=== PATIENT | female | born 1980 | race Two or more races ===

== ENCOUNTER 2024-08-05 11:22 | Inpatient (IN) | payer OTHER, MEDICAID, MEDICARE, SELFPAY ==
[2024-08-05] VITALS (32 sets, daily range): BP systolic 73–116; BP diastolic 46–77; PULSE 74–110; RESP 13–94; TEMP 37–37.7; O2SAT 86–97; BMI 32.9; BMI 34.8
--- NOTE | 2024-08-05 11:51 | XR_ITS ---
Examination: CT brain head without contrast. 2-D sagittal coronal reconstructions Date and time of exam:August 05, 2024 1222 hours INDICATIONS: Patient fell today with injury to the head, head pain CTDI: vol (mGy):48.5 DLP: (mGycm):885 Technique: Multiple CT axial sections of the brain have been obtained, 5 mm slice thickness. Contrast has not been administered. 2-D sagittal, coronal reconstructions have been obtained Low dose protocols were performed. One or more of the following dose reduction techniques were used; automated exposure control, adjustment of the mA and/or KV according to patient size, use of iterative reconstruction technique. Findings: No significant ventricular enlargement. Large areas of calcification in the basal ganglia Intra-axial or extra-axial hemorrhage density is not seen. No mass effect or midline shift Basal cisterns are not remarkable. Fourth ventricle is midline. Cranial vault intact. Impression: Negative for acute hemorrhage, mass effect or midline shift
--- NOTE | 2024-08-05 11:52 | XR_ITS ---
Examination: AP chest single view TECHNIQUE: AP portable upright chest single view Exam date and time: August 05, 1999 2512 noon INDICATIONS: Sepsis protocol. FINDINGS: Bilateral perihilar right basilar pneumonia Normal heart size Reduced inspiratory effort IMPRESSION: Bilateral perihilar right basilar pneumonia
--- NOTE | 2024-08-05 11:54 | PD.EDSYNC ---
ED Syncope RME/HPI General Chief Complaint: Syncope / Near Syncope Stated Complaint: SYNCOPE EPISODE Time Seen by Provider: 08/05/24 11:51 Arrival date/time: 08/05/24 11:22 RME / HPI RME / HPI narrative: 43-year-old female patient with significant history of mental retardation, was brought in by EMS from home regarding syncope. Patient had a syncope few minutes prior to ER visit, and landed on the floor. Since then patient has been noticed to have confusion. When the EMS arrived patient was noted to be hypotensive, blood pressure on the low 70s. On my initial evaluation patient only had a headache. Denies any cough denies any fever denies any abdominal pain. In the triage patient's initial blood pressure was noted to be 83/53 heart rate of 74. I spoke with patient's sister who told me that yesterday he has been having a lot of loose stools, nonbloody. None today. Patient was eating breakfast before it happened. Was also noted to be having worsening cough for the last few days. Sepsis alert was called initially. Related Data Allergies Allergy/AdvReac Type Severity Reaction Status Date / Time ampicillin Allergy Severe Rash Verified 10/13/10 15:13 clindamycin Allergy Unknown Rash Verified 10/13/10 15:13 Review of Systems Review of Systems Narrative Review of Systems: Review of system reviewed and within normal limits except mentioned in HPI ED Exam Narrative Physical exam: VITAL SIGNS: Reviewed. GENERAL APPEARANCE: Alert and oriented x 2, follows simple commands, no acute distress, GCS 14 HEAD AND FACE: Non-traumatic. ENT: PERRL, pink conjunctivitis, eyelid no trauma, Mucous membrane moist. NECK: Supple, nontender, no nuchal rigidity. CHEST: No tenderness, no crepitus, no paradoxical movement, no retractions. LUNGS: Clear, well ventilated, symmetric, no rales, no wheezing, no ronchi, no stridor, good breath sounds bilaterally. HEART: Regular rate, regular rhythm, no murmur, no gallops. ABDOMEN: Soft, positive bowel sounds, nondistended, no guarding, nontender, no rebound, no masses, RECTAL: Deferred. GENITAL: Deferred. NEUROLOGICAL: Gross motor function intact sensory function intact, Appropriate for age. MUSCULOSKELETAL: low back nontender, full range of motion. EXTREMITIES: Nontender, full range of motion. SKIN: Color pink, dry, no rash, no lacerations, no abrasions, no contusions. LYMPHATICS: Deferred. Course Quality Measures none Orders Category Date Time Status Bedside COVID-19 Antigen Test NOW Care 08/05/24 11:56 Active Bedside Influenza A&B Antigen Test NOW Care 08/05/24 11:56 Active COVID-19 Screening Questionnaire NOW Care 08/05/24 16:15 Ordered Buffet Attendant STAT Care 08/05/24 11:51 Active Continuous Pulse Oximetry STAT Care 08/05/24 11:51 Completed Decision to Admit X1 Care 08/05/24 16:15 Ordered EKG (ED ONLY) *Do not use* NOW Care 08/05/24 11:51 Completed In and Out Catheter X1PRN Care 08/05/24 11:51 Completed Insert IV NOW Care 08/05/24 11:51 Active NPO STAT Care 08/05/24 11:51 Active Strict Intake and Output Routine Care 08/05/24 11:[address] head/brain wo con Stat Exams 08/05/24 11:51 Completed EKG (ED Only) Stat Exams 08/05/24 11:51 Ordered XR chest 1V SEPSIS PROTOCOL Stat Exams 08/05/24 11:52 Completed B-Type Natriuretic Peptide Stat Lab 08/05/24 12:00 Completed Blood Culture (Lab) Stat Lab 08/05/24 12:00 Received CBC Stat Lab 08/05/24 12:00 Completed Comprehensive Metabolic Panel Stat Lab 08/05/24 12:00 Completed LDH (Lactate Dehydrogenase) Stat Lab 08/05/24 12:00 Completed Lactate (Lactic Acid) Stat Lab 08/05/24 12:00 Completed Lipase Stat Lab 08/05/24 12:00 Completed Magnesium Stat Lab 08/05/24 12:00 Completed Partial Thromboplastin Time Stat Lab 08/05/24 12:00 Completed Phosphorous Stat Lab 08/05/24 12:00 Completed Procalcitonin Stat Lab 08/05/24 12:00 Completed Prothrombin Time with INR Stat Lab 08/05/24 12:00 Completed Troponin I Stat Lab 08/05/24 12:00 Completed Urinalysis Stat Lab 08/05/24 14:55 Completed Urine Culture Stat Lab 08/05/24 12:41 Received Acetaminophen Tab [Tylenol ES Tab] Med 08/05/24 15:54 Discontinued 1,000 mg PO X1 ONE Azithromycin Inj [Zithromax Inj] 500 mg Med 08/05/24 12:38 Discontinued Sodium Chloride 0.9% 250 ml [Ns] 250 ml IV X1 KCL 10% Liq UDC 15 ML Med 08/05/24 15:04 Discontinued 40 meq PO X1 ONE Morphine Inj Med 08/05/24 15:54 Discontinued 4 mg IVP X1 ONE Ondansetron Inj [Zofran Inj] Med 08/05/24 15:54 Discontinued 4 mg IV X1 ONE Potassium Chloride [K-Dur] Med 08/05/24 14:32 Discontinued 40 meq PO X1 ONE Ringers Lactated 1000 ml [Lactated Ringers] 1,000 ml Med 08/05/24 16:09 Active IV 999 mls/hr Sodium Chloride 0.9% 1000 ml [Ns] 2,449 ml Med 08/05/24 11:52 Discontinued IV 2,449 mls/hr cefTRIAXone/D5w 1gm IV premix [Rocephin/D5w 1gm IV Med 08/05/24 12:35 Discontinued premix] 50 ml IV X1 Oxygen Delivery NOW RT 08/05/24 11:51 Active Vital Signs Vital signs: Vital Signs Temperature 99.1 F 08/05/24 11:24 Pulse Rate 74 08/05/24 11:24 Respiratory Rate 20 08/05/24 11:24 Blood Pressure 91/61 08/05/24 11:24 Pulse Oximetry (%) 93 L 08/05/24 11:24 Oxygen Delivery Method Room Air 08/05/24 11:24 Syncope MDM Narrative MDM Narrative:: 43-year-old female patient with significant history of mental retardation, was brought in by EMS from home regarding syncope. Patient had a syncope few minutes prior to ER visit, and landed on the floor. Since then patient has been noticed to have confusion. When the EMS arrived patient was noted to be hypotensive, blood pressure on the low 70s. On my initial evaluation patient only had a headache. Denies any cough denies any fever denies any abdominal pain. In the triage patient's initial blood pressure was noted to be 83/53 heart rate of 74. I spoke with patient's sister who told me that yesterday he has been having a lot of loose stools, nonbloody. None today. Patient was eating breakfast before it happened. Was also noted to be having worsening cough for the last few days. Sepsis alert was called initially. Patient initially received 30 mL/kg IV bolus, total of 2.4 L, workup is significant for pneumonia. Patient received IV ceftriaxone and IV Zithromax. After all the medication and fluid given repeat the blood pressure went up a little bit but still on the mid 80s systolic. Patient plan of care discussed with the patient and family who agreed to be admitted for further management. Additional 1 L of IV LR was given. Spoke with hospitalist who will admit the patient. Patient data External records reviewed:: None Clinical information provided by:: none Social determinants that could affect healthcare access:: none Patient has the following chronic illnesses:: None How is presenting disease/condition affected by chronic disease/condition?: no chronic disease Evaluation data The following diagnostics were reviewed and interpreted by me:: lab results, radiology exam(s) and EKG tracing(s) Lab and/or radiology exams considered but not ordered:: None Interpretation Summary: CT scan of the head came back unremarkable. Chest x-ray showed bilateral pneumonia. Laboratory workup all came back unremarkable. EKG as interpreted by me showed sinus rhythm, ventricular rate of 71 bpm, no ST segment elevation depression noted. Medications / Prescriptions Medications or Prescriptions considered but not ordered:: None Medication administrations:: Medication Administration History Lactated Ringer's (Lactated Ringers) 1,000 mls @ 999 mls/hr IV .Q1H1M ONE Stop: 08/05/24 17:09 Last Admin: 08/05/24 16:11 Dose: 999 mls/hr Documented By: JOIE Discontinued Medications Acetaminophen (Acetaminophen 500 Mg Tablet) 1,000 mg PO X1 ONE Stop: 08/05/24 15:55 Last Admin: 08/05/24 16:10 Dose: Not Given Documented By: JOIE Non-Admin Reason: Cancelled by Provider Sodium Chloride (Ns) 2,449 mls @ 2,449 mls/hr 30 ml/kg infuse over 60 min (2449 ml) IV .Q1H ONE; Protocol Stop: 08/05/24 12:51 Last Infusion: 08/05/24 13:18 Dose: Infused Documented By: Admin: 08/05/24 12:04 Dose: 2,449 mls/hr Documented By: JOIE Ceftriaxone Sodium/Dextrose (Rocephin/D5w 1gm Iv Premix) 50 mls @ 100 mls/hr IV X1 ONE Stop: 08/05/24 13:04 Last Infusion: 08/05/24 13:15 Dose: Infused Documented By: Admin: 08/05/24 12:42 Dose: 100 mls/hr Documented By: JOIE Azithromycin 500 mg/ Sodium (Chloride) 250 mls @ 250 mls/hr IV X1 ONE Stop: 08/05/24 13:37 Last Infusion: 08/05/24 14:27 Dose: Infused Documented By: Admin: 08/05/24 13:26 Dose: 250 mls/hr Documented By: REE Morphine Sulfate (Morphine Sulf Inj 10 Mg/Ml Vial) 4 mg IVP X1 ONE Stop: 08/05/24 15:55 Last Admin: 08/05/24 16:10 Dose: Not Given Documented By: JOIE Non-Admin Reason: Cancelled by Provider Ondansetron HCl (Ondansetron Inj 2 Mg/Ml Inj 2 Ml) 4 mg IV X1 ONE; Protocol Stop: 08/05/24 15:55 Last Admin: 08/05/24 16:10 Dose: Not Given Documented By: JOIE Non-Admin Reason: Cancelled by Provider Potassium Chloride (Potassium Chloride 20 Meq Tabcr) 40 meq PO X1 ONE Stop: 08/05/24 14:33 Last Admin: 08/05/24 15:05 Dose: Not Given Documented By: JOIE Non-Admin Reason: Discontinued Potassium Chloride (Potassium Chloride 10% 20 Meq/15 Ml Udc) 40 meq PO X1 ONE Stop: 08/05/24 15:05 Last Admin: 08/05/24 15:10 Dose: 40 meq Documented By: JOIE Tylenol, ceftriaxone Zithromax potassium replacement and IV fluids for hydration Consultations Consultation(s) initiated? (list below): No Diagnosis Syncope Differential Diagnosis: syncope due to orthostatic hypotension, vasovagal syncope and other (Sepsis, pneumonia) Most likely diagnosis given after review of the tests above:: Sepsis, hypotension, pneumonia Admission Indicated Admission indicated?: indicated Explain why admission is indicated or not indicated:: Patient is to be admitted for further management. Admission Request Was there a request for admission?: Yes Admission Attestation Admission request attestation: Discussed case with [Dr Hernandez] from Hospitalist service regarding admission. Discussed patients ED course, exam findings, labs, and radiology results. The Hospitalist [agrees] to accept the patient for admission. Disposition Plan Disposition Plan: Admit Discharge Plan Plan Patient Disposition: Admit Acute Care w/in Hospital Prescriptions/Referrals Referrals: Janeth Chisholm PA-C [Primary Care Provider] - In 1 week Problem List Clinical Impression: Sepsis, Acute hypotension, Pneumonia Patient/Caregiver Discharge Instructions Print Language: Turkish Stand Alone Forms: [employer] Award Info., Patient Portal Info Letter
[2024-08-05] MEDS: SODIUM CHLORIDE 0.9% 2449 ML IV (12:04)
[2024-08-05 12:12] LABS: Lactate (Lactic Acid) 1.3 mMol/L (0.4-2.0)
[2024-08-05 12:14] LABS: Basophils % (Auto) 1 % (0-2.5); Eosinophils % (Auto) 0 % (0-10); Hemoglobin 13.2 g/dL (12.0-16.0); Immature Granulocytes % (Auto) 1 % (0-0); Immature Granulocytes Auto 0.03 Thou/mm3 (0.00-0.00); Lymphocytes # (Auto) 1.1 Thou/mm3 (1.0-4.8); Lymphocytes % (Auto) 39 % (10-50); Mean Corpuscular HGB Conc 34.7 g/dl (31.0-37.0); Mean Corpuscular Hemoglobin 33.7 pg (25.0-35.0); Mean Corpuscular Volume 97 fL (80-100); Monocytes # (Auto) 0.3 Thou/mm3 (0.0-0.8); Monocytes % (Auto) 9 % (0-12); Neutrophils # (Auto) 1.4 Thou/mm3 (1.8-7.7); Neutrophils % (Auto) 50 % (37-80); Nucleated Red Blood Cell % 0 /100 WBC (0); Platelet Count 131 Thou/mm3 (140-440); RDW Standard Deviation 51.7 fL (36.4-46.3); Red Blood Count 3.92 Miln/mm3 (4.00-5.20)
[2024-08-05 12:29] LABS: B-Type Natriuretic Peptide < 20 pg/mL (0-100)
[2024-08-05 12:34] LABS: White Blood Count 2.7 Thou/mm3 (3.6-11.0)
[2024-08-05 12:41] LABS: Alanine Aminotransferase 34 U/L (10-49); Albumin, Serum 3.8 gm/dL (3.5-5.0); Albumin/Globulin Ratio 1.2 (1.2-2.2); Alkaline Phosphatase 72 U/L (46-116); Anion Gap 8 (7-16); Aspartate Amino Transferase 54 U/L (0-34); BUN/Creatinine Ratio 15 Ratio (12-20); Bilirubin,Total 0.4 mg/dL (0.3-1.2); Blood Urea Nitrogen 17 mg/dL (9-23); Calcium (Corrected) 8.2 mg/dL (8.5-10.1); Carbon Dioxide 28.1 mMol/L (20.0-31.0); Chloride 100 mMol/L (98-107); Creatinine (Component) 1.1 mg/dL (0.6-1.3); Estimated Creatinine Clearance 63.9 mL/min (>60); Globulin 3.2 gm/dL (2.3-3.5); Glucose 103 mg/dL (74-106); LDH (Lactate Dehydrogenase) 340 U/L (120-246); Lipase 32 U/L (12-53); Magnesium 1.7 mg/dL (1.6-2.6); Osmolality,Calculated 273 (275-295); Procalcitonin 0.13 ng/ml (0.0-0.49); Sodium 136 mMol/L (136-145); Troponin I < 0.020 ng/mL (0.0-0.045); eGFR > 60 See Note
[2024-08-05 12:42] LABS: INR 1.1 (0.9-1.3); Partial Thromboplastin Time 31.9 Seconds (22.0-36.0); Prothrombin Time 11.5 Seconds (9.0-12.2)
[2024-08-05] MEDS: cefTRIAXone/D5w 1gm IV premix 50 ML IV (12:42)
[2024-08-05 12:56] LABS: Collection Type, Urine Clean Catch
[2024-08-05] MEDS: AZITHROMYCIN INJ 500 MG in SODIUM CHLORIDE 0.9% 250 ML 250 ML 250 MG IV (13:26)
[2024-08-05 15:09] LABS: Bacteria,Urine Rare; Bilirubin,Urine Negative (Negative); Blood,Urine Negative (Negative); Clarity,Urine Turbid (Clear/Hazy); Color,Urine Lt-Yellow (Lt Yel-Yel); Glucose, Urine Negative (Negative); Ketones,Urine Negative (Negative); Leukocyte Esterase,Urine Negative (Negative); Nitrite,Urine Negative (Negative); PH,Urine 6.5 (5.0-7.0); Protein,Urine Negative (Neg - Trace); RBC,Urine 1 /hpf (0-3); Specific Gravity,Urine 1.007 (1.001-1.035); Squamous Epithelial Cell,Urine 9 /hpf (0-5); Urobilinogen,Urine Negative mg/dL (0.0-1.0); WBC,Urine 1 /hpf (0-5)
[2024-08-05] MEDS: POTASSIUM CHLORIDE 10% 20 MEQ/15 ML UDC 40 MEQ PO (15:10)
[2024-08-05] MEDS: RINGERS LACTATED 1000 ML 1,000 ML 999 ML IV (16:11)
--- NOTE | 2024-08-05 17:04 | XR_ITS ---
Examination:Right hip AP, lateral, AP pelvis 3 views Technique: Hip AP lateral, AP pelvis, 3 views Exam date and time:August 05, 20242127 hrs. Indications: Patient fell today with injury to the hip, right hip pain Findings: No acute right hip fracture or dislocation Left hip bones of the pelvis intact Impression: No acute hip or pelvic fracture If pain persists, recommend follow-up AP pelvis in 1-2 days.
--- NOTE | 2024-08-05 17:04 | XR_ITS ---
Examination: Humerus 2 views right Technique: Humerus, AP lateral 2 views Date and time of exam: 1 0128 hrs. Indications: Patient fell today with injury to the right arm, right arm pain Findings: No shoulder fracture or dislocation Shaft of the humerus intact Impression: No acute fracture
--- NOTE | 2024-08-05 17:04 | XR_ITS ---
Examination: Knee, right , 3 views Technique: Knee AP, lateral, oblique 3 views Date and time of exam: August 05, 2024 2133 hrs. Indications: Patient fell today with injury to the knee, knee pain. Findings: No acute fracture No dislocation No foreign body Impression: No acute fracture
--- NOTE | 2024-08-05 17:18 | ESHP_ITS ---
<Statement entered by Johnnie Hayden MD - 08/05/24 19:38> I discussed with and supervised my co-resident involved in the care of this patient. I agree with the assessment and plan as documented above. Johnnie Hayden,PGY-3 Disclaimer: Despite multiple revisions, due to the dictation software being used, the document below may not be free of grammatical errors including phonetic/typographic errors. However, this does not deter from our commitment to providing health care in the patient's best interest in mind. Documentation for date of: 08/05/24 HPI History of Present Illness History of present illness: This is a 43-year-old female with PMH of Down syndrome, otherwise healthy who is presenting to ED following a syncopal episode. She remembered but poor historian as a result of DS . History was collected from sister at bedside. Patient was at her normal state of health this morning. She was having breakfast, but fainted and fell to the ground after standing up. Per sister, patient landed on her right side and possibly hit her head. Did not lose consciousness. No bowel or bladder incontinence. No seizure activity reported. Patient remembers the incident, remembers fainting. Father history revealed she had an episode of vomiting nonbloody, stomach content yesterday. She is also coughing over the last week for which she was taking [id number] cough suppressants. Otherwise she is eating and drinking well. Denies headaches, fever, chills, chest pain, shortness of breath, productive cough, abdominal pain, nausea, constipation or diarrhea, dysuria or urinary frequency is urgencies, sick exposure, recent travel, previous similar symptoms, alcohol or tobacco or drug use. ED COURSE: Afebrile, P90 , HR 74, RR 20, satting 93% on room air. WBC 2.7 (baseline 6.1), Hgb 13.2, PLT 131. Normal coag study. Potassium 3.0, corrected calcium 8.2, LDH 340, AST 54. UA negative for UTI. Head CT was negative for acute pathology. CXR showed bilateral pneumonia. She was given 2.4 L fluid however remained normotensive. ED added another liter of fluid. At the time when I saw the patient her blood pressure was 106/87, HR 103. Admit the patient for further management. PMHx: Down syndrome. PSHx: Cataract surgery MEDS: None ALLERGIES: PENICILLIN (rash) SH: Lives at home. No tobacco/drug/alcohol Exam Vital Signs Temp Pulse Resp BP Pulse Ox O2 Del Method O2 Flow Rate 98.6 F 98 20 84/46 L 92 L Room Air 2 08/05/24 14:00 08/05/24 16:05 08/05/24 16:05 08/05/24 16:05 08/05/24 16:05 08/05/24 16:05 08/05/24 14:00 Narrative Exam GENERAL * Normal-appearing adult female, complaining of right lower extremity pain. HEENT * NCAT.?ANNAMARIE. Oral mucosa is moist. Patent Nares. * Cataract of right eye. NECK * Supple, nontender, no thyromegaly, no meningismus, no JVD, no step offs CHEST * RRR, no m/g/r * CTAB, no w/r/r. Symmetrical chest rise. No intercostal subcostal retraction * Atraumatic, nontender, no crepitus, symmetrical expansion. ABDOMEN * Soft, flat, nontender. No guarding/rebound tenderness/masses. * Bowel sounds presents EXTREMITIES * Nontender, no cyanosis, no edema * No edema/cyanosis.? * RLE: Limited range of motion due to pain, questionable tenderness over right thigh. SKIN * Warm and dry, no jaundice/rashes. NEUROMUSCULAR * No lumbar or midline, no CVA, no paraspinal muscle spasm or tenderness. * Moves all 4 extremities well, with full ROM and good CSM. * CRUZ x4, CN II-XII grossly intact. * No focal neurologic deficits. PSYCHIATRY * Normal mood and affect, cooperative, no SI or HI or hallucinations. Results: Labs 08/06/24 05:27 08/06/24 05:27 Labs: Short CBC 08/05/24 Range/Units 12:00 WBC 2.7 L (3.6-11.0) Thou/mm3 Hgb 13.2 (12.0-16.0) g/dL Hct 38.0 (36.0-46.0) % Plt Count 131 L (140-440) Thou/mm3 BMP 08/05/24 12:00 Sodium 136 Potassium 3.0 L Chloride 100 Carbon Dioxide 28.1 BUN 17 Creatinine 1.1 Glucose 103 Calcium 8.0 L Cardiac Enzymes 08/05/24 Range/Units 12:00 Troponin I < 0.020 (0.0-0.045) ng/mL Liver Function 08/05/24 Range/Units 12:00 Total Bilirubin 0.4 (0.3-1.2) mg/dL AST 54 H (0-34) U/L ALT 34 (10-49) U/L Alkaline Phosphatase 72 (46-116) U/L Albumin 3.8 (3.5-5.0) gm/dL Urine 08/05/24 Range/Units 14:55 Urine Color Lt-Yellow (Lt Yel-Yel) Urine Clarity Turbid A (Clear/Hazy) Urine pH 6.5 (5.0-7.0) Ur Specific Brunson 1.007 (1.001-1.035) Urine Protein Negative (Neg - Trace) Urine Glucose (UA) Negative (Negative) Quality Measures Quality Measures none Medications Home Medications and Allergies Allergies Allergy/AdvReac Type Severity Reaction Status Date / Time ampicillin Allergy Severe Rash Verified 10/13/10 15:13 clindamycin Allergy Unknown Rash Verified 10/13/10 15:13 Visit Medications Acetaminophen (Acetaminophen 325 Mg Tablet) 650 mg PO Q6H PRN PRN Reason: PAIN SCALE 1-3 (mild Stop: 09/04/24 17:03 Acetaminophen (Acetaminophen 325 Mg Tablet) 650 mg PO Q6H PRN PRN Reason: Fever >100 Stop: 09/04/24 17:03 Hydrocodone Bitart/Acetaminophen (Hydrocodone/Apap 10/325 Tab) 1 tab PO Q4HR PRN PRN Reason: PAIN SCALE 7-10 (Severe Stop: 08/10/24 17:03 Apixaban (Apixaban 2.5 Mg Tablet) 5 mg PO BID [facility] Stop: 08/26/24 20:59 Azithromycin (Azithromycin 250 Mg Tablet) 250 mg PO QDAY [facility] Stop: 08/13/24 08:59 Ceftriaxone Sodium/Dextrose (Rocephin/D5w 1gm Iv Premix) 50 mls @ 100 mls/hr IV QDAY [facility] Stop: 08/13/24 09:12 Ondansetron HCl (Ondansetron Inj 2 Mg/Ml Inj 2 Ml) 4 mg IV Q6H PRN; Protocol PRN Reason: NAUSEA OR VOMITING Stop: 09/04/24 17:03 Oxycodone/Acetaminophen (Oxycodone/Apap 5/325 Tablet) 1 tab PO Q6H PRN PRN Reason: PAIN SCALE 4-6 (Moderate Stop: 08/10/24 17:03 Pantoprazole Sodium (Pantoprazole Inj 40 Mg Vial) 40 mg IVP QDAY [facility] Stop: 09/05/24 08:59 Discontinued Medications Acetaminophen (Acetaminophen 500 Mg Tablet) 1,000 mg PO X1 ONE Stop: 08/05/24 15:55 Last Admin: 08/05/24 16:10 Dose: Not Given Sodium Chloride (Ns) 2,449 mls @ 2,449 mls/hr 30 ml/kg infuse over 60 min (2449 ml) IV .Q1H ONE; Protocol Stop: 08/05/24 12:51 Last Infusion: 08/05/24 13:18 Dose: Infused Ceftriaxone Sodium/Dextrose (Rocephin/D5w 1gm Iv Premix) 50 mls @ 100 mls/hr IV X1 ONE Stop: 08/05/24 13:04 Last Infusion: 08/05/24 13:15 Dose: Infused Azithromycin 500 mg/ Sodium (Chloride) 250 mls @ 250 mls/hr IV X1 ONE Stop: 08/05/24 13:37 Last Infusion: 08/05/24 14:27 Dose: Infused Lactated Ringer's (Lactated Ringers) 1,000 mls @ 999 mls/hr IV .Q1H1M ONE Stop: 08/05/24 17:09 Last Admin: 08/05/24 16:11 Dose: 999 mls/hr Morphine Sulfate (Morphine Sulf Inj 10 Mg/Ml Vial) 4 mg IVP X1 ONE Stop: 08/05/24 15:55 Last Admin: 08/05/24 16:10 Dose: Not Given Ondansetron HCl (Ondansetron Inj 2 Mg/Ml Inj 2 Ml) 4 mg IV X1 ONE; Protocol Stop: 08/05/24 15:55 Last Admin: 08/05/24 16:10 Dose: Not Given Potassium Chloride (Potassium Chloride 20 Meq Tabcr) 40 meq PO X1 ONE Stop: 08/05/24 14:33 Last Admin: 08/05/24 15:05 Dose: Not Given Potassium Chloride (Potassium Chloride 10% 20 Meq/15 Ml Udc) 40 meq PO X1 ONE Stop: 08/05/24 15:05 Last Admin: 08/05/24 15:10 Dose: 40 meq Assessment & Plan Plan In summary: 43-year-old female with Down syndrome admitted for presyncope likely in settings of sepsis pneumonia. Presyncope DDx: Septic pneumonia, volume depletion 2/2 vomiting, electrolyte abnormality, hypothyroidism, cardiogenic. Presenting after syncopal episode. She fainted after standing up from breakfast stable. No loss of consciousness. Sister at bedside believes she hit her head. CXR showed pneumonia, patient complaining dry cough x 1 week. History of vomiting x 1 day, hypotensive on admission with BP 89/65. Hypokalemia with potassium 3.0. Likely GI lites. CT head negative for acute pathology. No focal neurological deficits on exam. Blood sugar within normal limits. UA negative for UTI ? Treating pneumonia as below ? Continue normal saline at 75 cc an hour ? Physical therapy ? Pending orthostatics ? Pending TSH ? Pending echocardiogram Septic 2/2 Pneumonia Leukopenia She had dry cough x 1 week for which she was taking OTC cough suppressant. Met sepsis with 3/4 SIRS including tachycardia, tachypnea, leukopenia and pneumonia source of infection. CXR showed bibasilar pneumonia. Febrile. Leukopenic with WBC 2.7 Received 3.4 L in ED. ? Continue CEFTRIAXONE daily (08/05 to present) ? Continue AZITHROMYCIN daily (08/05 to present) ? Continue normal saline at 75 cc an hour ? Pending cultures: blood and sputum ? Pending influenza A/B, COVID, RSV Hypokalemia Settings of GI loss as described above. ED repleted with 40 mill equivalent. ? Repleted magnesium Ground-level fall Right lower extremity pain Ground-level fall after presyncopal episode as described above. Patient complained of proximal RLE pain. Limited RLE motion 2/2 pain. No swelling or bony deformity on exam. Possible tenderness over right thigh. ? Pending x-ray right knee, hip ? Pain control Health maintenance Diet: Regular GI prophylaxis: Not indicated DVT prophylaxis: ELIQUIS Antibiotics: CEFTRIAXONE, CTX CODE STATUS: Full code Disposition: Pending syncope workup Patient case was discussed with attending, Dr. Lucie VILLEGAS, and senior residents Dr. Hayden and Dr. Kim. Imani Hernandez DO PGYI Attending Provider Attestation/Addendum 43-year-old female with Down syndrome was admitted for presyncopal episode. The patient is leukopenic. She has low potassium level. She had a ground-level fall complains of right lower extremity pain. Patient was admitted for possible sepsis secondary to pneumonia on IV antibiotic treatment potassium will be replenished. The patient has hypothyroidism. Discussed with housestaff
--- NOTE | 2024-08-05 17:45 | ECHO_ITS ---
Transthoracic Echo Report Ht (in): 62 Wt (lb): 180 Exam Location: [facility] Status: Inpatient Furnace Repair Mechanic: Paulette Crandall Indications: Procedure Performed: BP: 114 / 52 HR: 85 Rhythm: Sinus Technical Quality: Technically difficult study MEASUREMENTS (Male / Female) Normal Values 2D ECHO LV Diastolic Diameter PLAX 3.7 cm 4.2 - 5.9 / 3.9 - 5.3 cm LV Systolic Diameter PLAX 2.8 cm IVS Diastolic Thickness 1.1 cm 0.6 - 1.0 / 0.6 - 0.9 cm LVPW Diastolic Thickness 0.8 cm 0.6 - 1.0 / 0.6 - 0.9 cm LV Relative Wall Thickness 0.5 Ascending Aorta Diameter 2.5 cm M-MODE Aortic Root Diameter MM 2.7 cm LA Systolic Diameter MM 2.9 cm LA Ao Ratio MM 1.1 AV Cusp Separation MM 1.8 cm DOPPLER AV Peak Velocity 152.0 cm/s AV Peak Gradient 9.2 mmHg AV Mean Gradient 4.0 mmHg AV Velocity Time Integral 29.2 cm LVOT Peak Velocity 105.0 cm/s LVOT Peak Gradient 4.4 mmHg LVOT Velocity Time Integral 18.9 cm MV Peak Velocity 93.3 cm/s MV Peak Gradient 3.5 mmHg MV Mean Velocity 49.5 cm/s MV Mean Gradient 1.0 mmHg MV Area PHT 3.9 cm? Mitral E Point Velocity 91.2 cm/s Mitral A Point Velocity 68.9 cm/s Mitral E to A Ratio 1.3 LV E' Lateral Velocity 11.4 cm/s Mitral E to LV E' Lateral Ratio 8.0 LV E' Septal Velocity 6.7 cm/s Mitral E to LV E' Septal Ratio 13.5 TR Peak Velocity 193.0 cm/s TR Peak Gradient 14.9 mmHg FINDINGS Left Ventricle Normal left ventricular size, wall thickness, systolic function with no obvious regional wall motion abnormalities. The ejection fraction is visually estimated at 50-55%. Right Ventricle The right ventricle is normal in size and systolic function. The estimated right ventricular systoli c pressure, 20mmHg.RAP 5. Left Atrium The left atrium is normal by two-dimensional, color flow and Doppler imaging with no structural abnormalities, no thrombus formation present. Right Atrium The right atrium is normal by two-dimensional imaging, color flow and Doppler imaging with no struct ural abnormalities, no thrombus formation present. Atrial Septum The interatrial septum appears normal with no evidence of a shunt. Aorta The aorta is normal by two-dimensional, color flow and Doppler interrogation. Mitral Valve The mitral valve is normal by two-dimensional, color flow and Doppler interrogation. There is trace mitral valve regurgitation. Aortic Valve The aortic valve is trileaflet and normal by two-dimensional, color flow and Doppler interrogation. There is mild aortic valve regurgitation. Tricuspid Valve The tricuspid valve is normal by two-dimensional, color flow and Doppler interrogation. There is mil d tricuspid valve regurgitation. Pulmonic Valve There is trace pulmonic valve regurgitation. Vessels The pulmonary artery appears normal. The inferior vena cava pulmonary and hepatic veins appear aleshia l. Pericardium The pericardium is normal by two-dimensional imaging. There is no significant pericardial effusion. CONCLUSIONS Normal LV size and function. Estimated EF 50-55% Normal RV size and function Trace MR, PI. Mild AI. Glenis Bishop (Electronically Signed) Final Date: 06 August 2024 10:20
[2024-08-05] MEDS: Magnesium Sulfate 2 GM Ivpb 2 GM/50 ML BAG IV (18:44)
[2024-08-05] MEDS: SODIUM CHLORIDE 0.45 % 1,000 ML 75 ML IV (18:44)
[2024-08-05] MEDS: MIDODRINE 5 MG TABLET 10 MG PO (20:54)
[2024-08-06] VITALS (7 sets, daily range): BP systolic 95–130; BP diastolic 52–95; PULSE 70–89; RESP 16–18; TEMP 36.3–37.3; O2SAT 91–97
[2024-08-06] MEDS: SODIUM CHLORIDE 0.45 % 1,000 ML 75 ML IV ×2 (06:04→21:40)
[2024-08-06 06:18] LABS: Basophils % (Auto) 0 % (0-2.5); Eosinophils % (Auto) 0 % (0-10); Hematocrit 33.9 % (36.0-46.0); Hemoglobin 12.1 g/dL (12.0-16.0); Immature Granulocytes % (Auto) 1 % (0-0); Immature Granulocytes Auto 0.02 Thou/mm3 (0.00-0.00); Lymphocytes # (Auto) 1.2 Thou/mm3 (1.0-4.8); Lymphocytes % (Auto) 32 % (10-50); Mean Corpuscular HGB Conc 35.7 g/dl (31.0-37.0); Mean Corpuscular Hemoglobin 34.8 pg (25.0-35.0); Mean Corpuscular Volume 97 fL (80-100); Monocytes # (Auto) 0.4 Thou/mm3 (0.0-0.8); Monocytes % (Auto) 11 % (0-12); Neutrophils # (Auto) 2.1 Thou/mm3 (1.8-7.7); Neutrophils % (Auto) 57 % (37-80); Nucleated Red Blood Cell % 0 /100 WBC (0); Platelet Count 131 Thou/mm3 (140-440); RDW Standard Deviation 52.7 fL (36.4-46.3); Red Blood Count 3.48 Miln/mm3 (4.00-5.20); White Blood Count 3.7 Thou/mm3 (3.6-11.0)
[2024-08-06 06:45] LABS: Alanine Aminotransferase 24 U/L (10-49); Albumin, Serum 3.3 gm/dL (3.5-5.0); Albumin/Globulin Ratio 1.2 (1.2-2.2); Alkaline Phosphatase 62 U/L (46-116); Anion Gap 9 (7-16); Aspartate Amino Transferase 40 U/L (0-34); BUN/Creatinine Ratio 13 Ratio (12-20); Bilirubin,Total 0.4 mg/dL (0.3-1.2); Blood Urea Nitrogen 10 mg/dL (9-23); Calcium 7.2 mg/dL (8.3-10.6); Calcium (Corrected) 7.8 mg/dL (8.5-10.1); Carbon Dioxide 25.2 mMol/L (20.0-31.0); Chloride 104 mMol/L (98-107); Creatinine (Component) 0.8 mg/dL (0.6-1.3); Estimated Creatinine Clearance 80.2 mL/min (>60); Globulin 2.8 gm/dL (2.3-3.5); Glucose 98 mg/dL (74-106); Osmolality,Calculated 274 (275-295); Phosphorous 2.6 mg/dL (2.4-5.1); Potassium 3.6 mMol/L (3.4-5.1); Sodium 138 mMol/L (136-145); Thyroid Stimulating Hormone 5.03 uIU/mL (0.55-4.78); Total Protein 6.1 gm/dL (5.7-8.2); eGFR > 60 See Note
--- NOTE | 2024-08-06 08:10 | ESPR_ITS ---
Documentation for date of: 08/06/24 Subjective Subjective Interval history: No acute overnight events. No new complaints. Tolerating oral intake without nausea or vomiting. Denies fever, chills, headaches, chest pain, sob, cough, GI or urinary symptoms. Exam Vital Signs Temp Pulse Resp BP Pulse Ox O2 Del Method O2 Flow Rate 99.1 F 85 16 114/52 L 92 L Nasal Cannula 2 08/06/24 04:00 08/06/24 06:05 08/06/24 04:00 08/06/24 06:05 08/06/24 04:00 08/06/24 04:00 08/05/24 21:04 Narrative Exam GENERAL * Normal-appearing adult female, complaining of right lower extremity pain. HEENT * NCAT.?ANNAMARIE. Oral mucosa is moist. Patent Nares. * Cataract of right eye. NECK * Supple, nontender, no thyromegaly, no meningismus, no JVD, no step offs CHEST * RRR, no m/g/r * CTAB, no w/r/r. Symmetrical chest rise. No intercostal subcostal retraction * Atraumatic, nontender, no crepitus, symmetrical expansion. ABDOMEN * Soft, flat, nontender. No guarding/rebound tenderness/masses. * Bowel sounds presents EXTREMITIES * Nontender, no cyanosis, no edema * No edema/cyanosis.? * RLE: Limited range of motion due to pain, questionable tenderness over right thigh. SKIN * Warm and dry, no jaundice/rashes. NEUROMUSCULAR * No lumbar or midline, no CVA, no paraspinal muscle spasm or tenderness. * Moves all 4 extremities well, with full ROM and good CSM. * CRUZ x4, CN II-XII grossly intact. * No focal neurologic deficits. PSYCHIATRY * Normal mood and affect, cooperative, no SI or HI or hallucinations. Objective Labs 08/06/24 05:27 08/06/24 05:27 Labs: Laboratory Results - last 24 hr 08/05/24 08/05/24 08/06/24 12:00 14:55 05:27 WBC 2.7 L 3.7 RBC 3.92 L 3.48 L Hgb 13.2 12.1 Hct 38.0 33.9 L MCV 97 97 MCH 33.7 34.8 MCHC 34.7 35.7 RDW Std Deviation 51.7 H 52.7 H Plt Count 131 L 131 L Neut % (Auto) 50 57 Lymph % (Auto) 39 32 [place] % (Auto) 9 11 Eos % (Auto) 0 0 Baso % (Auto) 1 0 Neut # (Auto) 1.4 L 2.1 Lymph # (Auto) 1.1 1.2 [place] # (Auto) 0.3 0.4 Eos # (Auto) 0.0 0.0 Baso # (Auto) 0.0 0.0 Immature Gran # (Auto) 0.03 H 0.02 H Absolute Nucleated RBC 0.00 0.00 Immature Gran % 1 H 1 H Nucleated RBC % 0 0 PT 11.5 INR 1.1 APTT 31.9 Sodium 136 138 Potassium 3.0 L 3.6 D Chloride 100 104 Carbon Dioxide 28.1 25.2 Anion Gap 8 9 BUN 17 10 Creatinine 1.1 0.8 Estim Creat Clear Calc 63.9 80.2 eGFR > 60 > 60 BUN/Creatinine Ratio 15 13 Glucose 103 98 Calculated Osmolality 273 L 274 L Lactic Acid 1.3 Calcium 8.0 L 7.2 L Corrected Calcium 8.2 L 7.8 L Phosphorus 3.0 2.6 Magnesium 1.7 2.0 Total Bilirubin 0.4 0.4 AST 54 H 40 H ALT 34 24 Alkaline Phosphatase 72 62 Lactate Dehydrogenase 340 H Troponin I < 0.020 B-Natriuretic Peptide < 20 Total Protein 7.0 6.1 Albumin 3.8 3.3 L D Globulin 3.2 2.8 Albumin/Globulin Ratio 1.2 1.2 Lipase 32 Procalcitonin 0.13 TSH 5.03 H Free T4 1.20 Ur Collection Type Clean Catch Urine Color Lt-Yellow Urine Clarity Turbid A Urine pH 6.5 Ur Specific [place] 1.007 Urine Protein Negative Urine Glucose (UA) Negative Urine Ketones Negative Urine Blood Negative Urine Nitrite Negative Urine Bilirubin Negative Urine Urobilinogen (Auto) Negative Ur Leukocyte Esterase Negative Urine RBC 1 Urine WBC 1 Ur Squamous Epith Cells 9 H Urine Bacteria Rare Quality Measures Quality Measures none Assessment & Plan Assessment Current Active Medications: Generic Name Dose Route Start Last Admin Trade Name Freq PRN Reason Stop Dose Admin Acetaminophen 650 mg 08/05/24 17:04 Acetaminophen 325 Mg Tablet PO 09/04/24 17:03 Q6H PRN PAIN SCALE 1-3 (mild Acetaminophen 650 mg 08/05/24 17:04 Acetaminophen 325 Mg Tablet PO 09/04/24 17:03 Q6H PRN Fever >100 Hydrocodone Bitart/Acetaminophen 1 tab 08/05/24 17:04 Hydrocodone/Apap 10/325 Tab PO 08/10/24 17:03 Q4HR PRN PAIN SCALE 7-10 (Severe Azithromycin 250 mg 08/06/24 09:00 Azithromycin 250 Mg Tablet PO 08/13/24 08:59 QDAY SHAHRZAD Enoxaparin Sodium 40 mg 08/06/24 09:00 Enoxaparin Sod Inj 40 Mg/0.4 Ml Syringe SC 08/20/24 08:59 QDAY SHAHRZAD Ceftriaxone Sodium/Dextrose 50 mls @ 100 mls/hr 08/06/24 09:13 Rocephin/D5w 1gm Iv Premix IV 08/13/24 09:12 QDAY SHAHRZAD Protocol Sodium Chloride 1,000 mls @ 75 mls/hr 08/05/24 18:30 08/06/24 06:04 Ns 0.45% IV 09/04/24 18:29 75 mls/hr .[id number] SHAHRZAD Administration Ondansetron HCl 4 mg 08/05/24 17:04 Ondansetron Inj 2 Mg/Ml Inj 2 Ml IV 09/04/24 17:03 Q6H PRN NAUSEA OR VOMITING Protocol Oxycodone/Acetaminophen 1 tab 08/05/24 17:04 Oxycodone/Apap 5/325 Tablet PO 08/10/24 17:03 Q6H PRN PAIN SCALE 4-6 (Moderate Pantoprazole Sodium 40 mg 08/06/24 09:00 Pantoprazole Inj 40 Mg Vial IVP 09/05/24 08:59 QDAY SHAHRZAD Potassium Chloride 40 meq 08/06/24 08:06 Potassium Chloride 20 Meq Tabcr PO 08/06/24 08:07 X1 ONE Plan In summary: 43-year-old female with Down syndrome admitted for presyncope likely in settings of sepsis pneumonia. Presyncope DDx: Septic pneumonia, volume depletion 2/2 vomiting, electrolyte abnormality, hypothyroidism, cardiogenic. Presenting after syncopal episode. She fainted after standing up from breakfast stable. No loss of consciousness. Sister at bedside believes she hit her head. CXR showed pneumonia, patient complaining dry cough x 1 week. History of vomiting x 1 day, hypotensive on admission with BP 89/65. Hypokalemia with potassium 3.0. Likely GI lites. CT head negative for acute pathology. No focal neurological deficits on exam. Blood sugar within normal limits. UA negative for UTI. TSH 5.02, free T4 1.2. Echocardiogram showed normal LV size/function, EF 50-55%. Orthostatic vitals negative. However she had upper extremity SBP >30 difference, being lower on the left compared to the right. Follow-up with CT angio. ? Treating pneumonia as below ? Continue normal saline at 75 cc an hour ? Physical therapy ? Pending CT angio of left upper extremity. Septic 2/2 Influenza A pneumonia Leukopenia (resolved) She had dry cough x 1 week for which she was taking OTC cough suppressant. Met sepsis with 3/4 SIRS including tachycardia, tachypnea, leukopenia and pneumonia source of infection. CXR showed bibasilar pneumonia. Febrile. Leukopenic with WBC 2.7, normalized. Positive influenza A, negative flu Mihaela B and COVID Received 3.4 L in ED. ? Continue TAMIFLU 75 mg BID (08/06 to present) ? Continue CEFTRIAXONE daily (08/05 to present) ? Continue AZITHROMYCIN daily (08/05 to present) ? Continue normal saline at 75 cc an hour ? Pending cultures: blood and sputum ? Pending RSV Hypokalemia Settings of GI loss as described above. ED repleted with 40 mill equivalent. ? Repleted magnesium PRN Ground-level fall Right lower extremity pain Ground-level fall after presyncopal episode as described above. Patient complained of proximal RLE pain. Limited RLE motion 2/2 pain. No swelling or bony deformity on exam. Possible tenderness over right thigh. Total right lower extremity x-ray was negative for acute fracture. ? Pain control Health maintenance Diet: Regular GI prophylaxis: Not indicated DVT prophylaxis: ELIQUIS Antibiotics: CEFTRIAXONE, CTX CODE STATUS: Full code Disposition: Pending syncope workup Patient case was discussed with attending, Dr. Lucie VILLEGAS, and senior residents Dr. Hayden and Dr. Kim. Imani Hernandez, DO PGYI Senior Resident Attestation: Her syncope workup so far has been negative, so likely due to hypotension 2/2 hypovolemia 2/2 sepsis 2/2 Influenza PNA. We will continue with ceftriaxone, azithromycin and tamiflu for now. Started on CaCO3 600mg BID. I discussed with and supervised the diversity intern physician involved in the care of this patient. I personally saw and examined the patient and discussed the assessment and plan with the entire medicine team, including my attending. I agree with the assessment and plan as documented above. Charlie Kim MD PGY2 Internal Medicine Attending Provider Attestation/Addendum 43-year-old lady with Down syndrome admitted for presyncopal episode. The patient tested positive for influenza. She has influenza and pneumonia. Unequal pulses palpated by esthetician and manager medical spa will do further evaluation.
[2024-08-06] MEDS: AZITHROMYCIN 250 MG TABLET PO (08:36)
[2024-08-06] MEDS: POTASSIUM CHLORIDE 20 mEq TABCR 40 MEQ PO (08:36)
[2024-08-06] MEDS: cefTRIAXone/D5w 1gm IV premix 50 ML IV (08:37)
[2024-08-06] MEDS: PANTOPRAZOLE INJ 40 MG VIAL IVP (08:37)
[2024-08-06] MEDS: CALCIUM CARBONATE 600 MG TABLET PO ×2 (08:37→21:17)
[2024-08-06] MEDS: ENOXAPARIN SOD INJ 40 MG/0.4 ML SYRINGE SC (08:37)
[2024-08-06] MEDS: OSELTAMIVIR 75 MG CAPSULE PO ×2 (10:17→21:17)
--- NOTE | 2024-08-06 11:07 | XR_ITS ---
Examination: CT left upper extremity with intravenous contrast 2-D sagittal and coronal reconstructions. 3-D reconstructions. 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 100 cc Isovue-370 is administered intravenously. Sagittal and coronal 2-D reconstructions are obtained. 3-D reconstructions, angiographic images are obtained. 3-D postprocessing, including vascular maximum intensity projections. Low dose protocols were performed. One or more of the following dose reduction techniques were used; automated exposure control, adjustment of the mA and/or KV according to patient size, use of iterative reconstruction technique. Findings: Left subclavian artery intact Visualized left vertebral artery intact Left brachial and axillary arteries fill There is considerable arm movement degrades image quality of the distal brachial artery and severely degrades image quality of the radial and ulnar arteries Significant pneumonia left base Prominent lumbar levoscoliosis IMPRESSION: Left subclavian left vertebral left axillary arteries fill, proximal brachial artery is intact There is considerable are movement which severely degrades image quality of the distal brachial artery and the radial and ulnar arteries Consider arterial Doppler sonography follow-up to confirm patency of the renal and ulnar arteries as clinically warranted
[2024-08-06 15:10] LABS: HCG,Qualitative Serum Negative
--- NOTE | 2024-08-06 15:50 | PC.SS ---
Patient is alert/oriented. She resides with her mother. Patient is independent with ADL's. Patient was admitted for syncope. Patient is devel. delayed. Patient is not affiliated with [facility]. Patient pharmacy: [facility]. Family provides transportation. Patient follows at [facility]. Patient's last appt. in June. Patient plans on returning home upon discharge.
[2024-08-07] VITALS (9 sets, daily range): BP systolic 94–113; BP diastolic 56–65; PULSE 63–86; RESP 16–22; TEMP 36.2–37.1; O2SAT 93–97
[2024-08-07 06:08] LABS: Basophils % (Auto) 0 % (0-2.5); Eosinophils % (Auto) 0 % (0-10); Hematocrit 37.4 % (36.0-46.0); Hemoglobin 13.1 g/dL (12.0-16.0); Immature Granulocytes % (Auto) 1 % (0-0); Immature Granulocytes Auto 0.03 Thou/mm3 (0.00-0.00); Lymphocytes # (Auto) 1.7 Thou/mm3 (1.0-4.8); Lymphocytes % (Auto) 45 % (10-50); Mean Corpuscular Hemoglobin 34.6 pg (25.0-35.0); Mean Corpuscular Volume 99 fL (80-100); Monocytes # (Auto) 0.4 Thou/mm3 (0.0-0.8); Monocytes % (Auto) 11 % (0-12); Neutrophils # (Auto) 1.6 Thou/mm3 (1.8-7.7); Neutrophils % (Auto) 43 % (37-80); Nucleated Red Blood Cell % 0 /100 WBC (0); Platelet Count 123 Thou/mm3 (140-440); RDW Standard Deviation 53.8 fL (36.4-46.3); Red Blood Count 3.79 Miln/mm3 (4.00-5.20); White Blood Count 3.7 Thou/mm3 (3.6-11.0)
[2024-08-07 06:27] LABS: Alanine Aminotransferase 23 U/L (10-49); Albumin, Serum 3.6 gm/dL (3.5-5.0); Albumin/Globulin Ratio 1.2 (1.2-2.2); Alkaline Phosphatase 62 U/L (46-116); Anion Gap 8 (7-16); Aspartate Amino Transferase 38 U/L (0-34); BUN/Creatinine Ratio 6 Ratio (12-20); Bilirubin,Total 0.4 mg/dL (0.3-1.2); Blood Urea Nitrogen < 5 mg/dL (9-23); Calcium 7.9 mg/dL (8.3-10.6); Calcium (Corrected) 8.2 mg/dL (8.5-10.1); Carbon Dioxide 26.4 mMol/L (20.0-31.0); Chloride 103 mMol/L (98-107); Creatinine (Component) 0.8 mg/dL (0.6-1.3); Estimated Creatinine Clearance 80.2 mL/min (>60); Glucose 97 mg/dL (74-106); Osmolality,Calculated 271 (275-295); Potassium 4.2 mMol/L (3.4-5.1); Sodium 137 mMol/L (136-145); Total Protein 6.6 gm/dL (5.7-8.2); eGFR > 60 See Note
--- NOTE | 2024-08-07 08:05 | ESPR_ITS ---
Documentation for date of: 08/07/24 Subjective Subjective Interval history: No acute overnight events. Patient ambulating independently without lightheadedness or dizziness. Tolerating oral intake without nausea or vomiting. Denies new symptoms or worsening of symptoms. Denies fever, chills, headaches, chest pain, sob, cough, GI or urinary symptoms. Exam Vital Signs Temp Pulse Resp BP Pulse Ox O2 Del Method O2 Flow Rate 97.2 F 68 16 97/64 94 L Nasal Cannula 2 08/07/24 07:52 08/07/24 07:52 08/07/24 07:52 08/07/24 07:52 08/07/24 07:52 08/07/24 07:52 08/07/24 07:52 Narrative Exam GENERAL * Normal-appearing adult female, complaining of right lower extremity pain. HEENT * NCAT.?ANNAMARIE. Oral mucosa is moist. Patent Nares. * Cataract of right eye. NECK * Supple, nontender, no thyromegaly, no meningismus, no JVD, no step offs CHEST * RRR, no m/g/r * Mild bilateral wheezing, no rales or rhonchi. No intercostal subcostal retraction * Atraumatic, nontender, no crepitus, symmetrical expansion. ABDOMEN * Soft, flat, nontender. No guarding/rebound tenderness/masses. * Bowel sounds presents EXTREMITIES * Nontender, no cyanosis, no edema * No edema/cyanosis.? * RLE: Limited range of motion due to pain, questionable tenderness over right thigh. SKIN * Warm and dry, no jaundice/rashes. NEUROMUSCULAR * No lumbar or midline, no CVA, no paraspinal muscle spasm or tenderness. * Moves all 4 extremities well, with full ROM and good CSM. * CRUZ x4, CN II-XII grossly intact. * No focal neurologic deficits. PSYCHIATRY * Normal mood and affect, cooperative, no SI or HI or hallucinations. Objective Labs 08/07/24 04:53 08/07/24 04:53 Labs: Laboratory Results - last 24 hr 08/06/24 08/07/24 05:27 04:53 WBC 3.7 RBC 3.79 L Hgb 13.1 Hct 37.4 MCV 99 MCH 34.6 MCHC 35.0 RDW Std Deviation 53.8 H Plt Count 123 L Neut % (Auto) 43 Lymph % (Auto) 45 [place] % (Auto) 11 Eos % (Auto) 0 Baso % (Auto) 0 Neut # (Auto) 1.6 L Lymph # (Auto) 1.7 [place] # (Auto) 0.4 Eos # (Auto) 0.0 Baso # (Auto) 0.0 Immature Gran # (Auto) 0.03 H Absolute Nucleated RBC 0.00 Immature Gran % 1 H Nucleated RBC % 0 Sodium 137 Potassium 4.2 D Chloride 103 Carbon Dioxide 26.4 Anion Gap 8 BUN < 5 L Creatinine 0.8 Estim Creat Clear Calc 80.2 eGFR > 60 BUN/Creatinine Ratio 6 L Glucose 97 Calculated Osmolality 271 L Calcium 7.9 L Corrected Calcium 8.2 L Phosphorus 3.0 Magnesium 2.0 Total Bilirubin 0.4 AST 38 H ALT 23 Alkaline Phosphatase 62 Total Protein 6.6 Albumin 3.6 Globulin 3.0 Albumin/Globulin Ratio 1.2 HCG, Qual Negative Quality Measures Quality Measures none Assessment & Plan Assessment Current Active Medications: Generic Name Dose Route Start Last Admin Trade Name Freq PRN Reason Stop Dose Admin Acetaminophen 650 mg 08/05/24 17:04 Acetaminophen 325 Mg Tablet PO 09/04/24 17:03 Q6H PRN PAIN SCALE 1-3 (mild Acetaminophen 650 mg 08/05/24 17:04 Acetaminophen 325 Mg Tablet PO 09/04/24 17:03 Q6H PRN Fever >100 Hydrocodone Bitart/Acetaminophen 1 tab 08/05/24 17:04 Hydrocodone/Apap 10/325 Tab PO 08/10/24 17:03 Q4HR PRN PAIN SCALE 7-10 (Severe Azithromycin 250 mg 08/06/24 09:00 08/06/24 08:36 Azithromycin 250 Mg Tablet PO 08/13/24 08:59 250 mg QDAY SHAHRZAD Administration Calcium Carbonate 600 mg 08/06/24 09:00 08/06/24 21:17 Calcium Carbonate 600 Mg Tablet PO 09/05/24 08:59 600 mg BID SHAHRZAD Administration Enoxaparin Sodium 40 mg 08/06/24 09:00 08/06/24 08:37 Enoxaparin Sod Inj 40 Mg/0.4 Ml Syringe SC 08/20/24 08:59 40 mg QDAY SHAHRZAD Administration Ceftriaxone Sodium/Dextrose 50 mls @ 100 mls/hr 08/06/24 09:13 08/06/24 08:37 Rocephin/D5w 1gm Iv Premix IV 08/13/24 09:12 100 mls/hr QDAY SHAHRZAD Administration Protocol Sodium Chloride 1,000 mls @ 75 mls/hr 08/05/24 18:30 08/06/24 21:40 Ns 0.45% IV 09/04/24 18:29 75 mls/hr .[id number] SHAHRZAD Administration Ondansetron HCl 4 mg 08/05/24 17:04 Ondansetron Inj 2 Mg/Ml Inj 2 Ml IV 09/04/24 17:03 Q6H PRN NAUSEA OR VOMITING Protocol Oseltamivir Phosphate 75 mg 08/06/24 09:30 08/06/24 21:17 Oseltamivir 75 Mg Capsule PO 08/13/24 09:29 75 mg BID SHAHRZAD Administration Oxycodone/Acetaminophen 1 tab 08/05/24 17:04 Oxycodone/Apap 5/325 Tablet PO 08/10/24 17:03 Q6H PRN PAIN SCALE 4-6 (Moderate Pantoprazole Sodium 40 mg 08/07/24 09:00 Pantoprazole 40 Mg Tablet PO 09/05/24 08:59 QDAY SHAHRZAD Plan In summary: 43-year-old female with Down syndrome admitted for presyncope likely in settings of sepsis pneumonia. Patient still requiring nasal cannula, feels short of breath without nasal cannula, has wheezing on exam. Likely discharge tomorrow 08/07 with oxygen demand improved. Presyncope DDx: Septic pneumonia, volume depletion 2/2 vomiting, electrolyte abnormality, hypothyroidism, cardiogenic. Presenting after syncopal episode. She fainted after standing up from breakfast stable. No loss of consciousness. Sister at bedside believes she hit her head. CXR showed pneumonia, patient complaining dry cough x 1 week. History of vomiting x 1 day, hypotensive on admission with BP 89/65. Hypokalemia with potassium 3.0. Likely GI lites. CT head negative for acute pathology. No focal neurological deficits on exam. Blood sugar within normal limits. UA negative for UTI. TSH 5.02, free T4 1.2. Echocardiogram showed normal LV size/function, EF 50-55%. Orthostatic vitals negative. However she had upper extremity SBP >30 difference, being lower on the left compared to the right. Left UE CTA showed patent subclavian, vertebral, actually and proximal brachial arteries. There is poor visualization of the radial and ulnar arteries secondary to air. Follow-up with duplex ultrasound showed no arterial occlusions. ? Treating pneumonia as below ? Continue normal saline at 75 cc an hour ? Physical therapy Septic (resolved) Influenza A pneumonia Leukopenia (resolved) She had dry cough x 1 week for which she was taking OTC cough suppressant. Met sepsis with 3/4 SIRS including tachycardia, tachypnea, leukopenia and pneumonia source of infection. CXR showed bibasilar pneumonia. Febrile. Leukopenic with WBC 2.7, normalized. Positive influenza A, negative flu Mihaela B and COVID Received 3.4 L in ED. 48H blood culture negative. ? Continue TAMIFLU 75 mg BID (08/06 to present) ? Continue CEFTRIAXONE daily (08/05 to present) ? Continue AZITHROMYCIN daily (08/05 to present) ? Continue normal saline at 75 cc an hour ? Pending cultures: blood and sputum ? Pending RSV Hypokalemia Settings of GI loss as described above. ED repleted with 40 mill equivalent. ? Repleted magnesium PRN Ground-level fall Right lower extremity pain Ground-level fall after presyncopal episode as described above. Patient complained of proximal RLE pain. Limited RLE motion 2/2 pain. No swelling or bony deformity on exam. Possible tenderness over right thigh. Total right lower extremity x-ray was negative for acute fracture. ? Pain control Health maintenance Diet: Regular GI prophylaxis: Not indicated DVT prophylaxis: ELIQUIS Antibiotics: CEFTRIAXONE, CTX CODE STATUS: Full code Disposition: Pending syncope workup Patient case was discussed with attending, Bryce Clifford MD, and senior resident Dr. Kim. Imani Hernandez DO PGYI Senior Resident Attestation: Her syncope workup so far has been negative, so likely due to hypotension 2/2 hypovolemia 2/2 sepsis 2/2 Influenza PNA. We will continue with ceftriaxone, azithromycin and tamiflu for now. She has still been hypoxic and needing oxygen. She also had mild wheezing throughout the lung field. We will continue with current medical management and discharge her tomorrow if her vitals are stable. I discussed with and supervised the international project manager physician involved in the care of this patient. I personally saw and examined the patient and discussed the assessment and plan with the entire medicine team, including my attending. I agree with the assessment and plan as documented above. Charlie Kim MD PGY2 Internal Medicine Attending Provider Attestation/Addendum Face to face evaluation was performed by me. I have personally seen and examined the patient. I discussed the assessment and plan with the entire medicine team. I reviewed available medical records, imaging studies, laboratory results. I agree with the above subjective data, objective findings, assessment and plan except as corrected by me or noted below Sepsis, po without septic shock due to below Influenza A PNA and infection, possible superimposed bacterial PNA Pre syncope Hx of Down syndrome [facility], if remain negative the [facility] dc tmr, empiric Axbs for PNA,
[2024-08-07] MEDS: CALCIUM CARBONATE 600 MG TABLET PO ×2 (08:50→20:48)
[2024-08-07] MEDS: ENOXAPARIN SOD INJ 40 MG/0.4 ML SYRINGE SC (08:50)
[2024-08-07] MEDS: cefTRIAXone/D5w 1gm IV premix 50 ML IV (08:50)
[2024-08-07] MEDS: PANTOPRAZOLE 40 MG TABLET PO (08:51)
[2024-08-07] MEDS: OSELTAMIVIR 75 MG CAPSULE PO ×2 (08:51→20:48)
[2024-08-07] MEDS: AZITHROMYCIN 250 MG TABLET PO (08:51)
--- NOTE | 2024-08-07 11:16 | XR_ITS ---
Examination: Arterial duplex upper extremity, left Date and time of exam: August 07, 2024 11:29 AM INDICATIONS: CT angiogram left arm pain and swelling August 06, 2024, degraded by patient motion for visualization radial and ulnar arteries Findings: Duplex sonographic imaging of the left upper extremity arteries using B-mode/Dvoe scale imaging and Doppler spectral analysis and color flow. Arterial flow noted left subclavian left axillary left brachial left radial and left ulnar arteries, no arterial occlusions IMPRESSION:: No arterial occlusions
[2024-08-08] VITALS (7 sets, daily range): BP systolic 99–126; BP diastolic 61–78; PULSE 55–83; RESP 15–92; TEMP 36.2–36.7; O2SAT 91–98
[2024-08-08 05:48] LABS: Basophils % (Auto) 1 % (0-2.5); Eosinophils % (Auto) 0 % (0-10); Hematocrit 38.4 % (36.0-46.0); Immature Granulocytes % (Auto) 1 % (0-0); Immature Granulocytes Auto 0.04 Thou/mm3 (0.00-0.00); Lymphocytes # (Auto) 1.7 Thou/mm3 (1.0-4.8); Lymphocytes % (Auto) 43 % (10-50); Mean Corpuscular HGB Conc 33.9 g/dl (31.0-37.0); Mean Corpuscular Hemoglobin 33.5 pg (25.0-35.0); Mean Corpuscular Volume 99 fL (80-100); Monocytes # (Auto) 0.4 Thou/mm3 (0.0-0.8); Monocytes % (Auto) 11 % (0-12); Neutrophils # (Auto) 1.8 Thou/mm3 (1.8-7.7); Neutrophils % (Auto) 45 % (37-80); Nucleated Red Blood Cell % 0 /100 WBC (0); Platelet Count 118 Thou/mm3 (140-440); Red Blood Count 3.88 Miln/mm3 (4.00-5.20)
[2024-08-08 06:36] LABS: Alanine Aminotransferase 18 U/L (10-49); Albumin, Serum 3.6 gm/dL (3.5-5.0); Albumin/Globulin Ratio 1.2 (1.2-2.2); Alkaline Phosphatase 62 U/L (46-116); Anion Gap 8 (7-16); Aspartate Amino Transferase 31 U/L (0-34); BUN/Creatinine Ratio 10 Ratio (12-20); Bilirubin,Total 0.4 mg/dL (0.3-1.2); Blood Urea Nitrogen 8 mg/dL (9-23); Calcium 8.3 mg/dL (8.3-10.6); Calcium (Corrected) 8.6 mg/dL (8.5-10.1); Carbon Dioxide 26.4 mMol/L (20.0-31.0); Chloride 104 mMol/L (98-107); Creatinine (Component) 0.8 mg/dL (0.6-1.3); Estimated Creatinine Clearance 80.2 mL/min (>60); Globulin 3.1 gm/dL (2.3-3.5); Glucose 99 mg/dL (74-106); Osmolality,Calculated 273 (275-295); Sodium 138 mMol/L (136-145); Total Protein 6.7 gm/dL (5.7-8.2); eGFR > 60 See Note
--- NOTE | 2024-08-08 08:01 | PD.RESPRO ---
Documentation for date of: 08/08/24 Exam Vital Signs Temp Pulse Resp BP Pulse Ox O2 Del Method O2 Flow Rate 98.1 F 83 15 126/78 91 L Nasal Cannula 2 08/08/24 04:00 08/08/24 04:00 08/08/24 04:00 08/08/24 04:00 08/08/24 04:00 08/08/24 04:00 08/08/24 04:00 Objective Labs 08/08/24 05:16 08/08/24 05:16 Labs: Laboratory Results - last 24 hr 08/08/24 05:16 WBC 4.0 RBC 3.88 L Hgb 13.0 Hct 38.4 MCV 99 MCH 33.5 MCHC 33.9 RDW Std Deviation 54.0 H Plt Count 118 L Neut % (Auto) 45 Lymph % (Auto) 43 [place] % (Auto) 11 Eos % (Auto) 0 Baso % (Auto) 1 Neut # (Auto) 1.8 Lymph # (Auto) 1.7 [place] # (Auto) 0.4 Eos # (Auto) 0.0 Baso # (Auto) 0.0 Immature Gran # (Auto) 0.04 H Absolute Nucleated RBC 0.00 Immature Gran % 1 H Nucleated RBC % 0 Sodium 138 Potassium 4.0 Chloride 104 Carbon Dioxide 26.4 Anion Gap 8 BUN 8 L Creatinine 0.8 Estim Creat Clear Calc 80.2 eGFR > 60 BUN/Creatinine Ratio 10 L Glucose 99 Calculated Osmolality 273 L Calcium 8.3 Corrected Calcium 8.6 Phosphorus 4.0 Magnesium 2.0 Total Bilirubin 0.4 AST 31 ALT 18 Alkaline Phosphatase 62 Total Protein 6.7 Albumin 3.6 Globulin 3.1 Albumin/Globulin Ratio 1.2 Quality Measures Quality Measures none Assessment & Plan Assessment Current Active Medications: Generic Name Dose Route Start Last Admin Trade Name Freq PRN Reason Stop Dose Admin Acetaminophen 650 mg 08/05/24 17:04 Acetaminophen 325 Mg Tablet PO 09/04/24 17:03 Q6H PRN PAIN SCALE 1-3 (mild Acetaminophen 650 mg 08/05/24 17:04 Acetaminophen 325 Mg Tablet PO 09/04/24 17:03 Q6H PRN Fever >100 Hydrocodone Bitart/Acetaminophen 1 tab 08/05/24 17:04 Hydrocodone/Apap 10/325 Tab PO 08/10/24 17:03 Q4HR PRN PAIN SCALE 7-10 (Severe Azithromycin 250 mg 08/06/24 09:00 08/07/24 08:51 Azithromycin 250 Mg Tablet PO 08/13/24 08:59 250 mg QDAY SHAHRZAD Administration Calcium Carbonate 600 mg 08/06/24 09:00 08/07/24 20:48 Calcium Carbonate 600 Mg Tablet PO 09/05/24 08:59 600 mg BID SHAHRZAD Administration Enoxaparin Sodium 40 mg 08/06/24 09:00 08/07/24 08:50 Enoxaparin Sod Inj 40 Mg/0.4 Ml Syringe SC 08/20/24 08:59 40 mg QDAY SHAHRZAD Administration Ceftriaxone Sodium/Dextrose 50 mls @ 100 mls/hr 08/06/24 09:13 08/07/24 08:50 Rocephin/D5w 1gm Iv Premix IV 08/13/24 09:12 100 mls/hr QDAY SHAHRZAD Administration Protocol Ondansetron HCl 4 mg 08/05/24 17:04 Ondansetron Inj 2 Mg/Ml Inj 2 Ml IV 09/04/24 17:03 Q6H PRN NAUSEA OR VOMITING Protocol Oseltamivir Phosphate 75 mg 08/06/24 09:30 08/07/24 20:48 Oseltamivir 75 Mg Capsule PO 08/13/24 09:29 75 mg BID SHAHRZAD Administration Oxycodone/Acetaminophen 1 tab 08/05/24 17:04 Oxycodone/Apap 5/325 Tablet PO 08/10/24 17:03 Q6H PRN PAIN SCALE 4-6 (Moderate Pantoprazole Sodium 40 mg 08/07/24 09:00 08/07/24 08:51 Pantoprazole 40 Mg Tablet PO 09/05/24 08:59 40 mg QDAY SHAHRZAD Administration Plan In summary: 43-year-old female with Down syndrome admitted for presyncope likely in settings of sepsis pneumonia. Patient still requiring nasal cannula, feels short of breath without nasal cannula, has wheezing on exam. Likely discharge tomorrow 08/07 with oxygen demand improved. Vitals good, oxygenating 91% on 2 L Labs normal 48-hour cultures negative Presyncope DDx: Septic pneumonia, volume depletion 2/2 vomiting, electrolyte abnormality, hypothyroidism, cardiogenic. Presenting after syncopal episode. She fainted after standing up from breakfast stable. No loss of consciousness. Sister at bedside believes she hit her head. CXR showed pneumonia, patient complaining dry cough x 1 week. History of vomiting x 1 day, hypotensive on admission with BP 89/65. Hypokalemia with potassium 3.0. Likely GI lites. CT head negative for acute pathology. No focal neurological deficits on exam. Blood sugar within normal limits. UA negative for UTI. TSH 5.02, free T4 1.2. Echocardiogram showed normal LV size/function, EF 50-55%. Orthostatic vitals negative. However she had upper extremity SBP >30 difference, being lower on the left compared to the right. Left UE CTA showed patent subclavian, vertebral, actually and proximal brachial arteries. There is poor visualization of the radial and ulnar arteries secondary to air. Follow-up with duplex ultrasound showed no arterial occlusions. ? Treating pneumonia as below ? Continue normal saline at 75 cc an hour ? Physical therapy Septic (resolved) Influenza A pneumonia Leukopenia (resolved) She had dry cough x 1 week for which she was taking OTC cough suppressant. Met sepsis with 3/4 SIRS including tachycardia, tachypnea, leukopenia and pneumonia source of infection. CXR showed bibasilar pneumonia. Febrile. Leukopenic with WBC 2.7, normalized. Positive influenza A, negative flu Mihaela B and COVID Received 3.4 L in ED. 48H blood culture negative. ? Continue TAMIFLU 75 mg BID (08/06 to present) ? Continue CEFTRIAXONE daily (08/05 to present) ? Continue AZITHROMYCIN daily (08/05 to present) ? Continue normal saline at 75 cc an hour ? Pending cultures: blood and sputum ? Pending RSV Hypokalemia Settings of GI loss as described above. ED repleted with 40 mill equivalent. ? Repleted magnesium PRN Ground-level fall Right lower extremity pain Ground-level fall after presyncopal episode as described above. Patient complained of proximal RLE pain. Limited RLE motion 2/2 pain. No swelling or bony deformity on exam. Possible tenderness over right thigh. Total right lower extremity x-ray was negative for acute fracture. ? Pain control Health maintenance Diet: Regular GI prophylaxis: Not indicated DVT prophylaxis: ELIQUIS Antibiotics: CEFTRIAXONE, CTX CODE STATUS: Full code Disposition: Pending syncope workup Patient case was discussed with attending, Bryce Clifford MD, and senior resident Dr. Kim. Imani Hernandez, DO PGYI Senior Resident Attestation: Her syncope workup so far has been negative, so likely due to hypotension 2/2 hypovolemia 2/2 sepsis 2/2 Influenza PNA. We will continue with ceftriaxone, azithromycin and tamiflu for now. She has still been hypoxic and needing oxygen. She also had mild wheezing throughout the lung field. We will continue with current medical management and discharge her tomorrow if her vitals are stable. I discussed with and supervised the general internal medicine doctor physician involved in the care of this patient. I personally saw and examined the patient and discussed the assessment and plan with the entire medicine team, including my attending. I agree with the assessment and plan as documented above. Charlie Kim MD PGY2 Internal Medicine
[2024-08-08] MEDS: cefTRIAXone/D5w 1gm IV premix 50 ML IV (09:23)
[2024-08-08] MEDS: AZITHROMYCIN 250 MG TABLET PO (09:23)
[2024-08-08] MEDS: CALCIUM CARBONATE 600 MG TABLET PO (09:23)
[2024-08-08] MEDS: OSELTAMIVIR 75 MG CAPSULE PO (09:24)
[2024-08-08] MEDS: PANTOPRAZOLE 40 MG TABLET PO (09:24)
--- NOTE | 2024-08-08 10:30 | PC.NURSE ---
Walk test performed on patient. Patient on room air in bed O2 sat at 91. Patient got up and walked around the room for 6 minutes. O2 sat at 87 and remained at 87 during walk. Once patient back in bed O2 sat went up to 90. Placed pt on 2 Liters NC. O2 sat back up to 95
--- NOTE | 2024-08-08 13:34 | ESDS_ITS ---
Planned Discharge Date 08/08/24 DS: Providers Provider Date of admission: 08/05/24 17:04 Primary care physician: Janeth Chisholm PA-C Admitting Provider: Daryl Faulkner MD Attending Provider on Admission: Daryl Faulkner MD Consults: 08/05/24 18:27 Referral Physical Therapy Routine Comment: Physician Instructions: Attending Provider on DC: Sandra Jerez MD Discharging Provider: Sandra Jerez MD DS: Diagnosis Problem List Completed Was Problem List Reviewed/Reconciled?: Yes Hospital Course Hospital Course Hospital course: This is a 43-year-old female with Down syndrome admitted for presyncope, hypotension, and sepsis secondary to influenza A pneumonia. On admission she was tachycardic, tachypneic and had mild leukopenia which have resolved at the time of discharge. Head CT was negative for acute pathology. No focal neurological or speech deficits on exam. CXR showed bihilar pneumonia. ECHO showed Normal LV size and function. Estimated EF 50-55%. Labs were significant for potassium of 3.0 which was corrected. She had subclinical hypothyroidism with TSH 5.03 and normal free T4. Eventually, patient found to have a blood pressure difference between upper extremities with SBP lower on LUE compared to right UE by 30 points. CTA slightly determinate however duplex scan showed no arterial occlusion. Recommended outpatient follow-up. Patient also complained of RLE pain after ground-level fall. Strain of right lower extremity and hip were negative for acute fracture. Pain has resolved at the time of discharge. Patient continued on ANTIBIOTICS and TAMIFLU. 48H blood cultures were negative. Urine culture was negative. She was still desatting in low 90s while ambulating. She will continue home oxygen and incentive spirometry until she sees her PCP. Patient stable to discharge home. PATIENT INSTRUCTIONS: Follow-up with PCP within 1 week of discharge. Continue using oxygen as needed, maintain oxygen level greater than 93%, or until you see your PCP. Follow-up with PCP regarding subclinical hypothyroidism. Follow-up with PCP regarding blood pressure difference in bilateral upper extremity. Please send home with incentive spirometer. Return to Emergency Room if symptoms persist, worsen, or new symptoms develop. Continue taking medications as prescribed below: ? CEFUROXIME 500 mg twice daily for 3 days ? OSELTAMIVIR 35 mg twice daily, 5 more tablets ADMISSION DIAGNOSES: Presyncope (resolved) Septic (resolved) Influenza A pneumonia (improved) Leukopenia (resolved) Hypokalemia (resolved) Ground-level fall Right lower extremity pain (resovled) Patient case was discussed with attending, Sandra Jerez MD and senior residents Dr. Hayden and Dr. Kim. Imani Hernandez PGYI Senior Resident Attestation: I discussed with and supervised the digital media intern physician involved in the care of this patient. I personally saw and examined the patient and discussed the assessment and plan with the entire medicine team, including my attending. I agree with the discharge plan as documented above. Charlie Kim MD PGY2 Time Spent with Patient Time attestation: Total time spent providing and/or coordinating discharge services: Greater than 35 minutes. Exam Vital Signs Temp Pulse Resp BP Pulse Ox O2 Del Method O2 Flow Rate 97.2 F 61 18 116/67 92 L Room Air 2 08/08/24 12:00 08/08/24 12:00 08/08/24 12:00 08/08/24 12:08/08/24 12:08/08/24 12:08/08/24 09:14 Narrative Exam GENERAL * Normal-appearing adult female, complaining of right lower extremity pain. HEENT * NCAT.?ANNAMARIE. Oral mucosa is moist. Patent Nares. * Cataract of right eye. NECK * Supple, nontender, no thyromegaly, no meningismus, no JVD, no step offs CHEST * RRR, no m/g/r * CTAB, no wheezing or rales or rhonchi. No intercostal subcostal retraction * Atraumatic, nontender, no crepitus, symmetrical expansion. ABDOMEN * Soft, flat, nontender. No guarding/rebound tenderness/masses. * Bowel sounds presents EXTREMITIES * Nontender, no cyanosis, no edema * No edema/cyanosis.? * RLE: Limited range of motion due to pain, questionable tenderness over right thigh. SKIN * Warm and dry, no jaundice/rashes. NEUROMUSCULAR * No lumbar or midline, no CVA, no paraspinal muscle spasm or tenderness. * Moves all 4 extremities well, with full ROM and good CSM. * CRUZ x4, CN II-XII grossly intact. * No focal neurologic deficits. PSYCHIATRY * Normal mood and affect, cooperative, no SI or HI or hallucinations. Discharge Plan Plan Patient Disposition: HOME (Self Care) Disposition Comment: Home oxygen Care Plan Goals: Follow-up with PCP within 1 week of discharge. Follow-up with PCP regarding subclinical hypothyroidism (TSH 5.03, free T4 1.2) Follow-up with PCP regarding blood pressure difference in bilateral upper extremity. Continue using oxygen as needed, maintain oxygen level greater than 93%, or until you see your PCP. Please send home with incentive spirometer. Return to Emergency Room if symptoms persist, worsen, or new symptoms develop. Continue taking medications as prescribed below: ? CEFUROXIME 500 mg twice daily for 3 days ? OSELTAMIVIR 35 mg twice daily, 5 more tablets Prescriptions/Referrals Prescriptions/Med Rec: New oseltamivir 75 mg capsule 75 mg PO BID Qty: 5 0RF cefuroxime axetil 500 mg tablet 500 mg PO BID Qty: 6 0RF azithromycin 250 mg tablet 250 mg PO QDAY Qty: 1 0RF Referrals: Janeth Chisholm PA-C [Primary Care Provider] - Patient/Caregiver Discharge Instructions Discharge Activity: activity as tolerated Education Materials: Using Oxygen Safely, Using an Oxygen Tank at Home, ED Pneumonia (Adult) Print Language: Cuban Stand Alone Forms: [employer] Award Info., Patient Portal Info Letter Discharge Order Discharge Orders: Discharge (Routine); Ordered 08/08/24 Ordered By: Charlie Kim Quality Discharge Quality Measures VTE prophylaxis and sepsis Attestestation MD Attestation I attest that I was physically present for the evaluation, physical examination, lab and imaging review of the patient with the residents. I discussed the case with the residents and agree with the findings and plans of care as documented above. Brittney Jerez MD
--- NOTE | 2024-08-08 13:34 | PC.SS ---
O2 DME referral submitted via [facility] pending responses
--- NOTE | 2024-08-08 19:27 | PC.CM ---
Addendum entered by Nabeel Amor RN 08/08/24 19:29: spoke to pt bedside pt was discharged home with O2. Original Note: spoke to Dr. Kim, pt doesn't need HH.
== END 2024-08-08 16:09 | disposition home or self-care (01) | DRG 871 ==
LOC: SERX 16:20 → SERHOLD 17:34 → S3SX 22:14
PROVIDERS: Nurse Practitioner Family; Admitting Provider Internal Medicine; Emergency Provider Emergency Medicine; PCP Physician Assistant; Visit Provider Internal Medicine
DX: A41.9 Sepsis, unspecified organism (principal); J10.00 Influenza due to other identified influenza virus with unspecified type of pneumonia; J18.9 Pneumonia, unspecified organism; J10.01 Influenza due to other identified influenza virus with the same other identified influenza virus pneumonia; Q90.9 Down syndrome, unspecified; R55 Syncope and collapse; I95.9 Hypotension, unspecified; E87.6 Hypokalemia; F79 Unspecified intellectual disabilities
CPT/HCPCS: 36415; 70450; 71045; 73060; 73206; 73502; 73562; 80053; 81001; 83605; 83615; 83690; 83735; 83880; 84100; 84145; 84439; 84443; 84484; 84703; 85025; 85610; 85730; 87040; 87086; 87205; 87400; 87502; 87634; 87811; 93005; 93225; 93306; 93931; 96361; 96365; 96366; 96367; 97162; 99285; A4649; J0456; J0696; J1650; J2470; J3475; J7030; J7050; J7120; Q9967; A9270

== ENCOUNTER → 2024-08-25 | Outpatient (CLI) | payer OTHER, MEDICAID, SELFPAY ==
[2024-08-25 10:34] LABS: Basophils # (Auto) 0.1 Thou/mm3 (0.0-0.2); Basophils % (Auto) 2 % (0-2.5); Eosinophils % (Auto) 1 % (0-10); Hematocrit 41.6 % (36.0-46.0); Immature Granulocytes % (Auto) 0 % (0-0); Immature Granulocytes Auto 0.01 Thou/mm3 (0.00-0.00); Lymphocytes # (Auto) 2.2 Thou/mm3 (1.0-4.8); Lymphocytes % (Auto) 53 % (10-50); Mean Corpuscular HGB Conc 33.7 g/dl (31.0-37.0); Mean Corpuscular Hemoglobin 33.7 pg (25.0-35.0); Mean Corpuscular Volume 100 fL (80-100); Monocytes # (Auto) 0.4 Thou/mm3 (0.0-0.8); Monocytes % (Auto) 11 % (0-12); Neutrophils # (Auto) 1.4 Thou/mm3 (1.8-7.7); Neutrophils % (Auto) 34 % (37-80); Nucleated Red Blood Cell % 0 /100 WBC (0); Platelet Count 235 Thou/mm3 (140-440); RDW Standard Deviation 53.4 fL (36.4-46.3); Red Blood Count 4.15 Miln/mm3 (4.00-5.20); White Blood Count 4.1 Thou/mm3 (3.6-11.0)
[2024-08-25 10:46] LABS: Glucose Estimated Average 105 mg/dL (80-131); Hemoglobin A1C 5.3 % Hgb (4.8-6.0)
[2024-08-25 11:00] LABS: Vitamin D 25 Hydroxy Total 17.7 ng/mL (7.3-40.2)
[2024-08-25 11:03] LABS: Alanine Aminotransferase 21 U/L (10-49); Albumin, Serum 3.8 gm/dL (3.5-5.0); Albumin/Globulin Ratio 1.1 (1.2-2.2); Alkaline Phosphatase 86 U/L (46-116); Anion Gap 5 (7-16); Aspartate Amino Transferase 21 U/L (0-34); BUN/Creatinine Ratio 14 Ratio (12-20); Bilirubin,Total 0.4 mg/dL (0.3-1.2); Blood Urea Nitrogen 14 mg/dL (9-23); Calcium 8.6 mg/dL (8.3-10.6); Calcium (Corrected) 8.8 mg/dL (8.5-10.1); Carbon Dioxide 29.3 mMol/L (20.0-31.0); Cardiac Risk Estimate 4.1 RATIO (3.7-5.6); Chloride 107 mMol/L (98-107); Cholesterol 186 mg/dL (132-200); Free T4 (Free Thyroxine) 1.22 ng/dL (0.89-1.76); Globulin 3.4 gm/dL (2.3-3.5); Glucose 104 mg/dL (74-106); HDL Cholesterol 45 mg/dL (40-60); LDL Cholesterol,Calculated 120 mg/dL (0-130); Osmolality,Calculated 281 (275-295); Potassium 3.9 mMol/L (3.4-5.1); Sodium 141 mMol/L (136-145); Thyroid Stimulating Hormone 1.25 uIU/mL (0.55-4.78); Total Protein 7.2 gm/dL (5.7-8.2); Triglycerides 103 mg/dL (30-150); eGFR > 60 See Note
== END | disposition home or self-care (01) ==
LOC: COPL 09:12
PROVIDERS: PCP Physician Assistant; Referring Provider Physician Assistant; Visit Provider Physician Assistant
DX: E78.5 Hyperlipidemia, unspecified (principal); Z12.89 Encounter for screening for malignant neoplasm of other sites
CPT/HCPCS: 36415; 80053; 80061; 82306; 83036; 84439; 84443; 85025

== ENCOUNTER → 2024-09-04 | Outpatient (CLI) | payer OTHER, MEDICAID, SELFPAY ==
--- NOTE | 2024-09-04 10:39 | XR_ITS ---
Examination: PA lateral chest 2 views TECHNIQUE: Upright AP lateral chest 2 views Exam date and time: September 04, 2024 1050 hours INDICATIONS: History pneumonia 2 weeks ago. FINDINGS: Bibasilar pneumonia Normal heart size No pulmonary edema Severe thoracic dextroscoliosis IMPRESSION: Persistent perihilar bibasilar pneumonia
== END | disposition home or self-care (01) ==
LOC: CDIM 10:31
PROVIDERS: PCP Physician Assistant; Referring Provider Physician Assistant; Visit Provider Physician Assistant
DX: J18.9 Pneumonia, unspecified organism (principal)
CPT/HCPCS: 71046

== ENCOUNTER → 2025-04-28 | Outpatient (CLI) | payer OTHER, MEDICAID, SELFPAY ==
--- NOTE | 2025-04-28 10:45 | XR_ITS ---
Examination: Screening digital mammography, bilateral Computer aided detection 3-D breast Tomosynthesis, bilateral Date and time of exam: 04/28/2025, 10:47 a.m. Comparisons: May 2021, December 2023 Indications: Screening Technique: Nonmagnified MLO, CC views of the breasts to been obtained, reconstructed from 3-D Tomosynthesis images. R2 computer aided detection program utilized for evaluation of suspicious masses and/or abnormal calcifications. 3-D Tomosynthesis images obtained. Technologist: Findings: There are scattered areas of fibroglandular density. No evidence of abnormal masses or suspicious calcifications. Impression: BI-RADS category 1: Negative findings (within normal) Recommend 1 year follow-up mammogram
== END | disposition home or self-care (01) ==
LOC: CDIM 10:23
PROVIDERS: Referring Provider Physician Assistant; Visit Provider Physician Assistant
DX: Z12.31 Encounter for screening mammogram for malignant neoplasm of breast (principal); R92.313 Mammographic fatty tissue density, bilateral breasts
CPT/HCPCS: 77063; 77067